=== PATIENT | female | born 1935 | race Caucasian/White ===

== ENCOUNTER 2017-06-18 18:02 | Emergency (ER) | payer OTHER ==
[~2017-06-18] VITALS: Ht 157.5 cm; Wt 70.8 kg
[2017-06-18] MEDS ORDERED: PANTOPRAZOLE 40 MG/10 ML VIAL IV STA (18:40)
[2017-06-18] MEDS ORDERED: SODIUM CHLORIDE 0.9% 500 ML IVB ONE (18:40)
[2017-06-18] MEDS ORDERED: ONDANSETRON HCL 4 MG/2 ML VIAL IV ONE (18:45)
[2017-06-18] MEDS ORDERED: MORPHINE SULFATE 4 MG/ML SYR/VIAL IV ONE (18:45)
[2017-06-18 19:15] LABS: Basophils # (auto) 0 uL; Basophils % (auto) 0.3 % (0.0-2.0); Eosinophils # (auto) 0 uL; Hematocrit 44.2 % (36.0-46.0); Hemoglobin 14.9 g/dL (12.2-16.2); Lymphocytes # (auto) 0.7 uL; Lymphocytes % (auto) 10.9 % (10.0-50.0); Mean Corpuscular Hemoglobin 30.9 pg (28.0-32.0); Mean Corpuscular Hgb Conc. 33.6 g/dL (32.0-36.0); Monocytes # (auto) 0.6 uL; Monocytes % (auto) 8.8 % (0.0-12.0); Neutrophils # (auto) 5.3 uL; Nucleated Red Blood Cells % 0.1 %; Platelet Count (auto) 197 10^3/uL (140-450); Red Cell Distribution Width 13.3 % (11.8-14.3); White Blood Cell 6.6 10^3/uL (4.4-10.8)
[2017-06-18 19:37] LABS: Albumin 3.5 g/dL (3.4-5.0); BUN/Creatinine Ratio 21.2; Calcium 9.1 mg/dL (8.5-10.1); Magnesium 2.3 mg/dL (1.6-2.6); Potassium 3.7 mmol/L (3.5-5.1); Total Protein 7.6 g/dL (6.4-8.2)
[2017-06-18 21:15] LABS: Urine Bacteria MOD /hpf (None Seen); Urine Blood 1+ /uL (Negative); Urine Budding Yeast FEW /hpf (None Seen); Urine Specific Gravity 1.015 (1.001-1.035); Urine WBC 1805 /hpf (0 - 5); Urine WBC Clumps PRESENT /hpf (None Seen)
[2017-06-18] MEDS ORDERED: cefTRIAXone 1GM/10ml IVPUSH 10 ML IV ONE (21:45)
[2017-06-18 23:36] VITALS: BP 177/66
== END 2017-06-19 01:01 | disposition short-term general hospital (02) ==
LOC: ER 18:12
DX: N39.0 Urinary tract infection, site not specified (principal); M79.7 Fibromyalgia; H40.9 Unspecified glaucoma
CPT/HCPCS: 36415; 74176; 80053; 81001; 82150; 83690; 83735; 85025; 94761; 96361; 96374; 96375; 99285; C9113; J2405; J7040